=== PATIENT | male | born 1980 | race Two or more races ===

== ENCOUNTER 2020-04-30 10:09 | Emergency (ER) | payer OTHER ==
[~2020-04-30] VITALS: Ht 172.7 cm; Wt 68.0 kg
[2020-04-30] MEDS ORDERED: KETO10TA2 PO (12:48)
[2020-04-30] MEDS ORDERED: CIPRO500 MG PO (12:48)
== END 2020-04-30 13:01 | disposition home or self-care (01) ==
LOC: ER 10:09
DX: N20.1 Calculus of ureter (principal); R10.31 Right lower quadrant pain; Z03.818 Encounter for observation for suspected exposure to other biological agents ruled out